=== PATIENT | female | born 1950 | race Caucasian/White ===

== ENCOUNTER 2023-05-09 10:33 | Emergency (ER) | payer MEDICARE, OTHER, SELFPAY ==
[2023-05-09 10:58] VITALS: BP 181/88
[2023-05-09 11:35] LABS: % Basophils 0.8 % (0-2); % Eosinophils 0.6 % (0-6); % Immature Granulocytes 0.3 % (0-0.5); % Lymphocytes 24.5 % (20.5-51.1); % Monocytes 3.8 % (1.7-9.3); Absolute Basophils 0.1 10^3/uL (0-0.2); Absolute Lymphocytes 1.6 10^3/uL (1.2-3.4); Absolute Monocytes 0.3 10^3/uL (0.1-0.6); Absolute Neutrophils 4.6 10^3/uL (1.4-6.5); Hematocrit 42.4 % (37.0-47.0); Hemoglobin 14.8 g/dL (12.0-16.0); Mean Corp Hgb Conc. 34.9 g/dL (33.0-37.0); Mean Corpuscular Hgb 30.5 pg (27.0-31.0); Mean Corpuscular Volume 87.2 fL (81.0-99.0); Mean Platelet Volume 9.5 fL (7.4-10.4); Nucleated Red Blood Cells % 0 %; Platelet Count 251 10^3/uL (130-400); Red Blood Cell Count 4.86 10^6/uL (4.20-5.40); Red Cell Dist. Width 13.3 % (11.5-14.5); White Blood Cell Count 6.5 10^3/uL (4.8-10.8)
[2023-05-09 11:50] LABS: ALT (SGPT) 32 U/L (0-35); AST (SGOT) 28 U/L (14-36); Albumin 4.1 g/dl (3.5-5.0); Alkaline Phosphatase 124 U/L (38-126); Blood Urea Nitrogen 22 mg/dl (7-17); Calcium 9.7 mg/dl (8.4-10.2); Carbon Dioxide 25 mmol/L (22-30); Chloride 104 mmol/L (98-107); Glucose 166 mg/dl (70-99); Potassium 3.6 mmol/L (3.5-5.1); Sodium 139 mmol/L (135-145); Total Bilirubin 0.9 mg/dl (0.2-1.3); eGFR > 60.00
--- NOTE | 2023-05-09 13:11 | ED.GENMED ---
History of Present Illness
General
Chief Complaint: Blood Pressure Problem
Source: patient
Exam Limitations: none
Time Seen by Provider: 05/09/23 12:42
Travel History
Have you had any contact with someone who has COVID-19?: No
Do you have any symptoms of coronavirus? Fever > 100 degrees, chills, cough, shortness of breath, sore throat, loss of taste or smell, muscle aches, or headache?: No
History of Present Illness
History of Present Illness:
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 She is on losartan 50 mg daily and metoprolol succinate 25 mg
daily. She takes metoprolol in the evenings and the losartan in the mornings. She took them as prescribed recently. Her pressure was as high as 188/85 at home. No chest pain or shortness of breath. No headache or vision change. No nausea
vomiting diaphoresis. No other complaints at this time
Past History
Past History
ED Past Medical History: HTN and Hypothyroidism
Social History
Tobacco: Non-smoker
Phy Exam
Physical Exam
Physical Exam:
Physical Exam
General: no apparent distress, not acutely ill
Neck: supple. no meningeal signs.
Heart: s1/s2 regular rate and rhythm, no murmur. equal radial pulses.
Lungs: no acute respiratory distress. clear bilaterally
Abdomen: normal bowel sounds. not tender. no CVAT
Neuro: alert and oriented. no focal neurological deficits
Skin: no rash
Psychiatric: Slightly anxious
Extremities: no edema. no calf tenderness.
Course
Orders/Labs/Results
Orders:
Orders
05/09/23 11:16
CMP [Comprehensive Metabolic Panel] Urgent
Complete Blood Count/With Diff Urgent
05/09/23 13:09
Electrocardiogram (*1) Urgent
Reason for Study: Shortness of Breath
EKG- Treatment ONCE
05/09/23 13:34
Troponin I Urgent
05/09/23 13:47
CR Chest - 2 Views Urgent
Comment:
Reason For Exam: chest pain, cough
Abnormal Lab Results
05/09/23
11:16
BUN 22 H mg/dl
(7-17)
Glucose 166 H mg/dl
(70-99)
05/09/23 11:16
05/09/23 11:16
Vital Signs
Initial and Last Documented VS:
Initial Vital Signs
Temp Pulse Resp BP Pulse Ox
97.7 F 83 18 181/88 97
05/09/23 10:58 05/09/23 10:58 05/09/23 10:58 05/09/23 10:58 05/09/23 10:58
Last Documented Vital Signs
Temp Pulse Resp BP Pulse Ox
97.7 F 70 18 157/70 99
05/09/23 10:58 05/09/23 13:46 05/09/23 13:46 05/09/23 13:46 05/09/23 13:46
MDM/Problems Addressed
Differential Diagnosis Includes:
Elevated blood pressure readings at home. History of hypertension. Will check EKG. She did tell me she was short of breath with her exercise program she was doing the other day. No current chest pain or shortness of breath. Check labs as well.
*Critical Care Note
Total Time (30-74mins, 75-104mins- exclusive of procedures): Not Applicable
Update Note
Update Note:
Chest x-ray clear troponin undetectable recheck blood pressure 150s over 70s. Patient remains asymptomatic. At this point we will not change any regimen at home but will advise she follow-up with her corduroy cutting supervisor for further recommendations
regarding her blood pressure. Stable for discharge
ED Attending Note
-
Portions of this chart may have been created with voice recognition software.� Occasional wrong word or��sound alike� substitutions may have occurred due to the inherent limitations of voice recognition software.
Discharge Plan
Departure
Patient Disposition: Home (Routine Discharge)
Date of Disposition: 05/09/23
Time of Disposition: 15:24
Patient with high blood pressure during this ER visit?: No
Discharge Problem:
Elevated blood pressure reading
Instructions: High Blood Pressure (DC)
Prescriptions:
No Action
pantoprazole 40 MG tablet,delayed release (DR/EC)
40 mg PO DAILY@0630
ascorbate calcium (vitamin C) [Jessica-C] 500 MG tablet
500 mg PO BID
levothyroxine 112 MCG tablet
112 mcg PO MOTUWETHFRSA
cholecalciferol (vitamin D3) 2,000 UNITS tablet
2,000 units PO BID
Magnesium Gluconate
200 mg PO DAILY
Zinc Chelate
30 mg PO DAILY
atorvastatin 80 MG tablet
80 mg PO QPM Qty: 90 3RF
losartan 25 MG tablet
25 mg PO DAILY Qty: 90 3RF
aspirin 81 MG tablet,chewable
81 mg PO DAILY 0RF
metoprolol succinate 25 MG tablet extended release 24 hr
25 mg PO DAILY Qty: 90 3RF
ticagrelor [Brilinta] 90 MG tablet
90 mg PO BID Qty: 180 3RF
Referrals:
Neymar Leon MD [Family Provider] -
Activity Restrictions/Additional Instructions:
Continue current medication regimen. Please follow-up with your corduroy cutting supervisor for further recommendations regarding your blood pressure. Return if worse otherwise
Interventions
Interventions:
ED- Fall Risk Assessment Last Done: 05/09/23 13:49
*ED COVID-19 Vaccine History Last Done: 05/09/23 10:58
ED- Cardiac Assessment Last Done: 05/09/23 13:48
ED- Neurological Assessment Last Done: 05/09/23 13:48
ED- Pulmonary Assessment Last Done: 05/09/23 13:48
[2023-05-09 13:46] VITALS: BP 157/70
[2023-05-09 14:02] LABS: Troponin I < 0.012 ng/ml
[2023-05-09 15:27] VITALS: BP 137/71
== END 2023-05-09 15:45 | disposition home or self-care (01) ==
LOC: EMR 10:33
PROVIDERS: Physician Assistant; EMERGENCY PHYSICIAN Emergency Medicine; FAMILY PHYSICIAN Family Medicine
DX: I10 Essential (primary) hypertension (principal)
CPT/HCPCS: 99285; 71046; 80053; 84484; 85025; 93005

== ENCOUNTER 2024-07-26 18:20 | Emergency (ER) | payer MEDICARE, OTHER, SELFPAY ==
[2024-07-26 18:20] VITALS: BMI 24.8
[2024-07-26 18:22] VITALS: BP 141/67
[2024-07-26 18:59] LABS: COVID-19 Antigen Negative (Negative)
[2024-07-26 19:00] LABS: Hematocrit 37.2 % (37.0-47.0); Hemoglobin 12.9 g/dL (12.0-16.0); Mean Corp Hgb Conc. 34.7 g/dL (33.0-37.0); Mean Corpuscular Hgb 30.1 pg (27.0-31.0); Mean Corpuscular Volume 86.9 fL (81.0-99.0); Platelet Count 146 10^3/uL (130-400); Red Blood Cell Count 4.28 10^6/uL (4.20-5.40); Red Cell Dist. Width 13.5 % (11.5-14.5); White Blood Cell Count 5.8 10^3/uL (4.8-10.8)
[2024-07-26 19:01] LABS: Lactic Acid 1.3 mmol/L (0.7-2.0)
[2024-07-26 19:02] LABS: ALT (SGPT) 44 U/L (0-35); AST (SGOT) 46 U/L (14-36); Albumin 3.9 g/dl (3.5-5.0); Alkaline Phosphatase 92 U/L (38-126); Blood Urea Nitrogen 25 mg/dl (7-17); Calcium 8.6 mg/dl (8.4-10.2); Carbon Dioxide 25 mmol/L (22-30); Chloride 95 mmol/L (98-107); Glucose 178 mg/dl (70-99); Potassium 4.1 mmol/L (3.5-5.1); Sodium 130 mmol/L (135-145); Total Bilirubin 0.9 mg/dl (0.2-1.3); Total Protein 6.5 g/dl (6.3-8.2); eGFR > 60.00
[2024-07-26 19:45] LABS: % Basophils 0.3 % (0-2); % Immature Granulocytes 0.2 % (0-0.5); % Lymphocytes 10.7 % (20.5-51.1); % Monocytes 6.2 % (1.7-9.3); % Neutrophils 82.6 % (42.2-75.2); Absolute Lymphocytes 0.6 10^3/uL (1.2-3.4); Absolute Monocytes 0.4 10^3/uL (0.1-0.6); Absolute Neutrophils 4.8 10^3/uL (1.4-6.5); Nucleated Red Blood Cells % 0 %
--- NOTE | 2024-07-26 21:32 | ED.GENMED ---
History of Present Illness
General
Chief Complaint: Fever
Source: patient and family
Exam Limitations: none
Time Seen by Provider: 07/26/24 21:08
History of Present Illness
History of Present Illness:
73 y/o female with a PMH of DM, HTN, hypothyroidism, CAD, cardiac stents, presenting to the ED c/o fever and SOB with low O2 ranging from 88 to 91% at home. Pt states she has been coughing x 2 weeks on and off, has not tried anything for the cough.
Started to feel fatigued 2 days ago which is when she also noticed the fever. Has been taking Tylenol for fever but says it returns right after medicine wears off. PCP recommended she comes in to ED for further evaluation. She denies any chest
pain, N/V/D, abdominal pain. Lives with Spouse who is also experiencing similar symptoms of fever and cough.
Past History
Past History
ED Past Medical History: HTN and Hypothyroidism
Social History
Tobacco: Non-smoker
Review of Systems
Review of Systems
Other source history: family
Constitutional: Reports fever and fatigue
EENT: Reports runny nose
Respiratory: Reports cough
ABD/GI: Reports no symptoms
: Reports no symptoms
Musculoskeletal: Reports no symptoms
Skin: Reports no symptoms
Neurological: Reports headache
Phy Exam
General Physical Exam
General Presentation: well appearing and no apparent distress
General age: appears stated age
General Skin: warm
General Habitus: normal
General Mental: alert
General Hydration: appears well hydrated and poor skin turgor
ENT Exam
ENT Exam: TM's normal, neck supple and normocephalic
Eye Exam
Eye Exam: conjunctiva normal
Cardiovascular Exam
Cardiovascular Exam: regular rate/rhythm and normal peripheral pulses
Heart Sounds: normal
Pulmonary Exam
Pulmonary Exam: no respiratory distress, no rales, no rhonchi and other (bilateral crackles)
Cough: productive cough
Breath Sounds: Crackles: generalized
Gastrointestinal Exam
Gastrointestinal Exam: normal bowel sounds and non tender
Palpation: generalized: No tenderness
Skin Exam
Skin Exam: normal color and no rash
Course
Orders/Labs/Results
Orders:
Orders
07/26/24 18:30
Chest [CR Chest - 2 Views ] Urgent
Comment:
Reason For Exam: SOB
07/26/24 18:35
Complete Blood Count/With Diff Urgent
Comprehensive Metabolic Panel Urgent
Blood Culture Urgent
AMY Source: Blood/Venous
Specimen Description:
Date Specimen was Collected: 07/26/24
Time Specimen was Collected: 18:27
07/26/24 18:37
COVID-19 Antigen Urgent
Source: Nasal Swab
Lactic Acid Urgent
Influenza A+B Rapid Molecular Urgent
AMY Source: Nasal Swab
Specimen Description:
07/26/24 18:45
Blood Culture Urgent
AMY Source: B
Specimen Description:
07/26/24 21:47
0.9% Sodium Chloride 1000 ml [Nss] 1,000 ml IV BOLUS
Acetaminophen [Tylenol] 1,000 mg PO NOW STA
07/26/24 21:53
Oseltamivir Phosphate [Tamiflu] 75 mg PO NOW STA
Abnormal Lab Results
07/26/24
18:35
Absolute Lymphs (auto) 0.6 L 10^3/uL
(1.2-3.4)
Neutrophils % 82.6 H %
(42.2-75.2)
Lymphocytes % 10.7 L %
(20.5-51.1)
Sodium 130 L mmol/L
(135-145)
Chloride 95 L mmol/L
(98-107)
BUN 25 H mg/dl
(7-17)
Glucose 178 H mg/dl
(70-99)
AST 46 H U/L
(14-36)
ALT 44 H U/L
(0-35)
07/26/24 18:35
07/26/24 18:35
Vital Signs
Initial and Last Documented VS:
Initial Vital Signs
Temp Pulse Resp BP Pulse Ox
100.1 F 83 18 141/67 95
07/26/24 18:22 07/26/24 18:22 07/26/24 18:22 07/26/24 18:22 07/26/24 18:22
Last Documented Vital Signs
Temp Pulse Resp BP Pulse Ox
100.1 F 78 26 141/67 94
07/26/24 18:22 07/26/24 21:45 07/26/24 21:45 07/26/24 18:22 07/26/24 21:30
*Critical Care Note
Total Time (30-74mins, 75-104mins- exclusive of procedures): Not Applicable
ED Attending Note
-
Portions of this chart may have been created with voice recognition software.� Occasional wrong word or��sound alike� substitutions may have occurred due to the inherent limitations of voice recognition software.
Discharge Plan
Departure
Prescriptions:
No Action
pantoprazole 40 MG tablet,delayed release (DR/EC)
40 mg PO DAILY@0630
ascorbate calcium (vitamin C) [Jessica-C] 500 MG tablet
500 mg PO BID
levothyroxine 112 MCG tablet
112 mcg PO MOTUWETHFRSA
cholecalciferol (vitamin D3) 2,000 UNITS tablet
2,000 units PO BID
Magnesium Gluconate
200 mg PO DAILY
Zinc Chelate
30 mg PO DAILY
atorvastatin 80 MG tablet
80 mg PO QPM Qty: 90 3RF
losartan 25 MG tablet
25 mg PO DAILY Qty: 90 3RF
aspirin 81 MG tablet,chewable
81 mg PO DAILY 0RF
metoprolol succinate 25 MG tablet extended release 24 hr
25 mg PO DAILY Qty: 90 3RF
ticagrelor [Brilinta] 90 MG tablet
90 mg PO BID Qty: 180 3RF
Interventions
Interventions:
*Risk Screen - Suicide Last Done: 07/26/24 18:22
*General Assessment Last Done: 07/26/24 18:22
*Neglect/Abuse Screening Last Done: 07/26/24 18:22
Discharge Date and Time
Print Language: YI
[2024-07-26 22:07] VITALS: BP 141/66
[2024-07-26] MEDS: TAMIFLU 75 MG PO (22:10)
[2024-07-26] MEDS: NSS 1000 IV (22:10)
[2024-07-26] MEDS: TYLENOL 1000 MG PO (22:10)
[2024-07-26 23:01] VITALS: BP 115/60
== END 2024-07-27 00:32 | disposition home or self-care (01) ==
LOC: EMR 18:20
PROVIDERS: Emergency Medicine; EMERGENCY PHYSICIAN Emergency Medicine; FAMILY PHYSICIAN Family Medicine
DX: J10.1 Influenza due to other identified influenza virus with other respiratory manifestations (principal); I10 Essential (primary) hypertension; E11.9 Type 2 diabetes mellitus without complications; I25.10 Atherosclerotic heart disease of native coronary artery without angina pectoris; E03.9 Hypothyroidism, unspecified; Z11.52 Encounter for screening for COVID-19
CPT/HCPCS: 99284; 96360; 71046; 80053; 83605; 85025; 87040; 87502; 87811